=== PATIENT | male | born 1980 | race African-American/Black ===

== ENCOUNTER 2018-08-21 10:07 | Emergency (ER) | payer OTHER ==
[~2018-08-21 10:07] MED LIST: ALLO-119 PO; ARIP10TA4 PO; HYDR-385 PO; HYDR-653 PO; INDO75CA PO; LEV112 PO; MIRT45TA8 PO; MULT-865 PO; NIC10R INH; OXYC-865 PO; PRED-1 PO; PRED20TA6 PO; SIMV-49 PO
--- NOTE | 2018-08-21 10:59 | ER Report ---
History and Physical Time Seen By MD: 10:59 Hx. of Stated Complaint: Pt. here for Gout attack. Left ankle pain and left great toe pain, ankle much worse than the toe. Pt. has been taking Allopurinol and Aleve at home with no relief. HPI/ROS CHIEF COMPLAINT: Gout HISTORY OF PRESENT ILLNESS: 38-year-old male patient presents to emergency room with complaint of gout. Patient states that he's been having pain for the past 4-5 days. Patient states that he has been taking Aleve, allopurinol at home with no relief. He states he also to take 3 days of indomethacin with no improvement. Patient states pain is significant. He denies any injury to the ankle. He states the pain is present with any type of light touch. Patient denies any fevers, chills, nausea, vomiting or diarrhea. Allergies: Coded Allergies: No Known Drug Allergies (Unverified , 08/21/18) Home Meds Active Scripts Hydrocodone Bit/Acetaminophen (HYDROCODON-ACETAMINOPHEN 5-325) 1 Each Tablet, 1 EACH PO Q4-6H PRN for PAIN, #6 TAB Prov:ADEBAYO CANTU 08/21/18 Prednisone (PREDNISONE) 20 Mg Tablet, 40 MG PO DAILY, #10 TAB Prov:ADEBAYO CANTU 08/21/18 Indomethacin (INDOMETHACIN) 75 Mg Capsule.er, 75 MG PO PRN for 7 Days, #10 Prov:JESUSITA ARVIZU MD 05/17/17 Reported Medications Levothyroxine Sodium (LEVOTHYROXINE SODIUM) 0.112 Mg Tab, 0.112 MG PO QDAY, TAB 09/10/17 Mirtazapine (MIRTAZAPINE) 45 Mg Tablet, 45 MG PO QHS 12/22/16 Simvastatin (SIMVASTATIN) 20 Mg Tablet, 10 PO QHS, TAB 01/30/16 Allopurinol (ZYLOPRIM) 300 Mg Tablet, 300 MG PO QDAY, TAB 01/30/16 Aripiprazole (ABILIFY) 10 Mg Tablet, 10 MG PO QDAY, TAB TAKE 1 TABLET BY MOUTH EVERY DAY 09/22/14 Discontinued Scripts Hydrocodone Bit/Acetaminophen (HYDROCODON-ACETAMINOPHEN 5-325) 1 Each Tablet, 1 EACH PO Q4-6H PRN for PAIN, #6 TAB Prov:ADEBAYO CANTU 09/10/17 Prednisone (PREDNISONE) 20 Mg Tablet, 20 MG PO DAILY, #10 TAB Prov:ADEBAYO CANTU [employer] 09/10/17 Past Medical/Surgical History Patient has a past medical history of hyperlipidemia, gout, hypothyroidism, substance abuse, alcohol abuse, depression, anxiety. Patient denies any pertinent surgical history. Hx Smoking: Yes Smoking Status: Current: Every Day Smoker Exposure to Second Hand Smoke?: Yes Hx Substance Use Disorder: Yes Hx Alcohol Use: Yes Constitutional Vital Sign - Last 24 Hours 08/21/18 10:14 Temp 98.5 Pulse 97 Resp 16 B/P (MAP) 121/86 Pulse Ox 95 O2 Delivery Room Air Physical Exam General appearance: Alert no distress. Respiratory: Chest is non tender, lungs are clear to auscultation. Cardiac: Regular rate and rhythm. Gastrointestinal: Patient has bowel sounds are active 4, he does have tenderness in the right lower quadrant palpation. Musculoskeletal: Patient does have erythema and warmth to the ankle, tender to the anterior aspect of the left ankle. Also has some tenderness to the left great toe. DIFFERENTIAL DIAGNOSIS: After history and physical exam differential diagnosis was considered for gout flareup Medical Decision Making ED Course/Re-evaluation ED Course Patient was admitted in exam room, history and physical were obtained. Differential diagnoses were considered. On examination patient does have tenderness to palpation to the left ankle, the left great toe. It is warm to the touch with is likely a gout flare. He has had these in the past and states this feels just like it. He is taking indomethacin with no improvement. We will go ahead and place the patient on prednisone as he has failed the indomethacin treatment. We will also give him a limited supply of pain medication, hydrocodone/Tylenol No. 6. He is to follow-up with his primary care provider in the next week. He is return to emergency room if condition worsens. Patient verbalized understanding and agreement with plan. Decision to Disposition Date: Aug 21, 2018 Decision to Disposition Time: 11:09 Depart Departure Latest Vital Signs Vital Signs Date Time Temp Pulse Resp B/P (MAP) Pulse Ox O2 Delivery O2 Flow Rate FiO2 08/21/18 10:14 98.5 97 16 121/86 95 Room Air Impression: Primary Impression: Gout Condition: Improved Disposition: HOME OR SELF-CARE New Scripts Hydrocodone Bit/Acetaminophen (HYDROCODON-ACETAMINOPHEN 5-325) 1 Each Tablet 1 EACH PO Q4-6H PRN for PAIN, #6 TAB Prov: ADEBAYO CANTU [employer] 08/21/18 Prednisone (PREDNISONE) 20 Mg Tablet 40 MG PO DAILY, #10 TAB Prov: ADEBAYO CANTU [employer] 08/21/18 Patient Instructions: Gout (ED) Additional Instructions: Limit activity by pain. Get plenty of rest. Stop taking the Allopurinol during this flare up. Start taking it again when it is done. Follow up with your primary care provider in the next week. Return to the ER if condition worsens. Problem Qualifiers Primary Impression: Gout Gout site: ankle Gout etiology: unspecified cause Chronicity: acute Laterality: left Qualified Codes: M10.9 - Gout, unspecified ADEBAYO CANTU [employer] Aug 21, 2018 10:59
[2018-08-21] MEDS ORDERED: HYDR-385 PO (11:07)
[2018-08-21] MEDS ORDERED: PRED20TA6 PO (11:07)
[2018-08-21 11:13] VITALS: BP 124/89
== END 2018-08-21 11:25 | disposition home or self-care (01) ==
LOC: ER 11:01
DX: M10.9 Gout, unspecified (principal); F17.210 Nicotine dependence, cigarettes, uncomplicated
CPT/HCPCS: 99282

== ENCOUNTER 2019-01-23 15:20 | Emergency (ER) | payer OTHER ==
[2019-01-23 15:25] VITALS: BP 140/88
--- NOTE | 2019-01-23 15:31 | ER Report ---
History and Physical Time Seen By MD: 15:29 Hx. of Stated Complaint: PAIN IN THE LEFT ANKLE AND KNEE. FEELS LIKE PAIN FROM GOUT THAT HE HAS HAD MULTIPLE TIMES IN THE PAST. HPI/ROS CHIEF COMPLAINT: Left knee and ankle pain HISTORY OF PRESENT ILLNESS: This is a 38-year-old male presents emergency department for pain in his left knee and ankle. Patient states that this past Tuesday he began to have some achiness in his left knee and left ankle. He states that the pain increased, started taking his indomethacin that was prescribed to him for gout. Patient states there is been some improvement today however he still has some pain to the left knee and left ankle. He denies chest pain or shortness of breath. No fevers or chills. No nausea or vomiting. No redness or erythema or cellulitic appearance over the knee or ankle. Patient states this feels very similar to the gout that he's had in the past. REVIEW OF SYSTEMS: Respiratory: No cough, no dyspnea. Cardiovascular: No chest pain, no palpitations. Gastrointestinal: No vomiting, no abdominal pain. Musculoskeletal: As above. Allergies: Coded Allergies: No Known Drug Allergies (Unverified , 08/21/18) Home Meds Active Scripts Prednisone (PREDNISONE) 20 Mg Tablet, 20 MG PO BID for 7 Days, #14 TAB 0 Refills Prov:ERICA MUÑOZ [employer] 01/23/19 Indomethacin (INDOMETHACIN) 75 Mg Capsule.er, 75 MG PO PRN for 7 Days, #10 Prov:JESUSITA ARVIZU MD 05/17/17 Reported Medications Levothyroxine Sodium (LEVOTHYROXINE SODIUM) 0.112 Mg Tab, 0.112 MG PO QDAY, TAB 09/10/17 Mirtazapine (MIRTAZAPINE) 45 Mg Tablet, 45 MG PO QHS 12/22/16 Simvastatin (SIMVASTATIN) 20 Mg Tablet, 10 PO QHS, TAB 01/30/16 Allopurinol (ZYLOPRIM) 300 Mg Tablet, 300 MG PO QDAY, TAB 01/30/16 Aripiprazole (ABILIFY) 10 Mg Tablet, 10 MG PO QDAY, TAB TAKE 1 TABLET BY MOUTH EVERY DAY 09/22/14 Discontinued Scripts Hydrocodone Bit/Acetaminophen (HYDROCODON-ACETAMINOPHEN 5-325) 1 Each Tablet, 1 EACH PO Q4-6H PRN for PAIN, #6 TAB Prov:ADEBAYO CANTU [employer] 08/21/18 Prednisone (PREDNISONE) 20 Mg Tablet, 40 MG PO DAILY, #10 TAB Prov:ADEBAYO CANTU [employer] 08/21/18 Past Medical/Surgical History The patient has a past medical and surgical history of hypercholesterolemia, gout, hypothyroidism, depression, anxiety. Reviewed Nurses Notes: Yes Hx Smoking: Yes Smoking Status: Current: Every Day Smoker Exposure to Second Hand Smoke?: Yes Hx Substance Use Disorder: Yes Hx Alcohol Use: Yes Constitutional Vital Sign - Last 24 Hours 01/23/19 15:25 Temp 98.3 Pulse 112 Resp 16 B/P (MAP) 140/88 Pulse Ox 93 O2 Delivery Room Air Physical Exam General Appearance: The patient is alert, has no immediate need for airway protection and no current signs of toxicity. Eyes: Pupils equal and round no injection. Respiratory: Chest is non tender, lungs are clear to auscultation. Cardiac: regular rate and rhythm, no murmurs, clicks or rubs. Gastrointestinal: Abdomen is soft and non tender, no masses, bowel sounds normal. Musculoskeletal: Neck: Neck is supple and non tender. Extremities mild tenderness and swelling to the left knee and left medial malleolus. No erythema or cellulitic appearance. The joints are not hot. No rashes. Skin: No rashes or lesions. DIFFERENTIAL DIAGNOSIS: After history and physical exam differential diagnosis was considered for septic arthritis, gout, cellulitis, bursitis. Medical Decision Making ED Course/Re-evaluation ED Course The patient was admitted to room. A history and physical were obtained. Differential diagnoses were considered. No concerning findings on physical exam, no erythema or cellulitic appearance to the left knee or ankle, does not appear to be septic arthritis at this time. Patient did decline aspiration of the knee joint. As the patient has been taking indomethacin, I did tell him to stop taking amoxicillin, he's been taking this for 4 days, start him on a course of steroids. I did encourage [facility] to [facility] and schedule [facility]. Patient had no other questions or concerns at this time and discharged home. Decision to Disposition Date: Jan 23, 2019 Decision to Disposition Time: 15:44 Depart Departure Latest Vital Signs Vital Signs Date Time Temp Pulse Resp B/P (MAP) Pulse Ox O2 Delivery O2 Flow Rate FiO2 01/23/19 15:25 98.3 112 16 140/88 93 Room Air Impression: Primary Impression: Gout Condition: Improved Disposition: HOME OR SELF-CARE New Scripts Prednisone (PREDNISONE) 20 Mg Tablet 20 MG PO BID for 7 Days, #14 TAB 0 Refills Prov: ERICA MUÑOZ 01/23/19 Patient Instructions: Gout (ED) Additional Instructions: Stopped taking the indomethacin and start taking the prednisone that I sent to your pharmacy. You can take 500-1000 mg of Tylenol every 8 hours as needed for additional pain relief. Avoid red meat, alcohol and anything else that seems to increase the discomfort. Drink plenty of water. Get plenty of rest. Please schedule a follow[facility] appointment [facility] for [facility]uation within the next 7-10 days. Return to the emergency department for any other concerns or worsening symptoms. Problem Qualifiers Primary Impression: Gout Gout site: knee Gout etiology: unspecified cause Chronicity: unspecified Laterality: left Qualified Codes: M10.9 - Gout, unspecified ERICA MUÑOZ Jan 23, 2019 15:31
[2019-01-23] MEDS ORDERED: PRED20TA6 PO (15:46)
== END 2019-01-23 16:08 | disposition home or self-care (01) ==
LOC: ER 15:51
DX: M10.9 Gout, unspecified (principal)
CPT/HCPCS: 99281

== ENCOUNTER 2019-02-18 17:38 | Emergency (ER) | payer OTHER ==
--- NOTE | 2019-02-18 18:00 | ER Report ---
History and Physical Time Seen By MD: 17:51 Hx. of Stated Complaint: PATIENT REPORTS SWELLING TO BOTH ANKLES AND BOTH KNEES FOR 4 DAYS. HAS HISTORY OF GOUT BUT REPORTS IT DOES NOT FEEL LIKE GOUT HPI/ROS CHIEF COMPLAINT: Ankle pain and swelling HISTORY OF PRESENT ILLNESS: This is a 38-year-old male who presents to the emergency department via EMS for ankle pain and swelling. The patient was seen and evaluated in the emergency department in January for gout, was given prednisone, he was [facility] prior to [facility] visit, he was taking allopurinol and indomethacin, with little to no relief. Patient states he did have moderate amount of relief with the prednisone, after the prednisone had run out, the [facility] and allopurinol. Patient states his pain has been waxing and waning, with intermittent swelling and achiness of his ankles bilaterally in his right knee. He ran out of his medication 2 days ago, last night began to have increased pain in the left ankle and right knee, so myself today that he called EMS, they transported him to the ER for further evaluation. He denies chest pain or shortness of breath. No fevers or chills. He is requesting help with his gout. He states he is unable to ambulate without assistance. There is warmth over the left ankle, right ankle and right knee, no cellulitis or erythema. REVIEW OF SYSTEMS: Constitutional: As above. Eyes: No discharge. ENT: No sore throat. Cardiovascular: No chest pain, no palpitations. Respiratory: No cough, no shortness of breath. Gastrointestinal: No abdominal pain, no vomiting. Genitourinary: No hematuria. Musculoskeletal: As above. Skin: No rashes. Neurological: No headache. Allergies: Coded Allergies: No Known Drug Allergies (Unverified , 08/21/18) Home Meds Active Scripts Prednisone (PREDNISONE) 20 Mg Tablet, 20 MG PO BID for 2 Days, #4 TAB Prov:ERICA MUÑOZ-BC 02/18/19 Hydrocodone Bit/Acetaminophen (NORCO 5-325 TABLET) 1 Each Tablet, 1 EACH PO Q4- 6H PRN for PAIN, #5 TAB 0 Refills Prov:ERICA MUÑOZ-BC 02/18/19 Prednisone (PREDNISONE) 20 Mg Tablet, 40 MG PO QDAY, #17 TAB 40mg once a day for 4 days. 30mg once a day for 3 days. 20mg once a day for 3 days. 10mg once a day for 2 days. Prov:ERICA MUÑOZ [facility]- 02/18/19 Prednisone (PREDNISONE) 20 Mg Tablet, 20 MG PO BID for 7 Days, #14 TAB 0 Refills Prov:ERICA MUÑOZ [facility]- 01/23/19 Indomethacin (INDOMETHACIN) 75 Mg Capsule.er, 75 MG PO PRN for 7 Days, #10 Prov:JESUSITA ARVIZU MD 05/17/17 Reported Medications Levothyroxine Sodium (LEVOTHYROXINE SODIUM) 0.112 Mg Tab, 0.112 MG PO QDAY, TAB 09/10/17 Mirtazapine (MIRTAZAPINE) 45 Mg Tablet, 45 MG PO QHS 12/22/16 Simvastatin (SIMVASTATIN) 20 Mg Tablet, 10 PO QHS, TAB 01/30/16 Allopurinol (ZYLOPRIM) 300 Mg Tablet, 300 MG PO QDAY, TAB 01/30/16 Aripiprazole (ABILIFY) 10 Mg Tablet, 10 MG PO QDAY, TAB TAKE 1 TABLET BY MOUTH EVERY DAY 09/22/14 Past Medical/Surgical History The patient has a past medical and surgical history of hypercholesterolemia, gout, hypothyroidism, depression, anxiety. Reviewed Nurses Notes: Yes Hx Smoking: Yes Smoking Status: Current: Every Day Smoker Exposure to Second Hand Smoke?: Yes Hx Substance Use Disorder: Yes Hx Alcohol Use: Yes Constitutional Vital Sign - Last 24 Hours 02/18/19 02/18/19 02/18/19 02/18/19 17:42 17:43 18:00 18:08 Temp 98.4 Pulse 127 125 Resp 16 B/P (MAP) 142/85 (104) 142/85 150/101 (117) Pulse Ox 90 93 O2 Delivery Room Air 02/18/19 02/18/19 02/18/19 02/18/19 18:38 19:00 19:08 19:30 Pulse 114 115 111 B/P (MAP) 144/103 (117) 146/103 (117) Pulse Ox 92 95 94 02/18/19 02/18/19 02/18/19 02/18/19 19:30 20:00 20:30 20:35 Pulse ??? 112 112 B/P (MAP) 146/103 (117) 135/92 (106) Pulse Ox 91 90 89 02/18/19 21:00 B/P (MAP) 132/93 (106) Physical Exam General Appearance: The patient is alert, has no immediate need for airway protection and no signs of toxicity. Eyes: Pupils equal and round no pallor or injection. ENT, Mouth: Mucous membranes are moist. Respiratory: There are no retractions, lungs are clear to auscultation. Cardiovascular: Regular rate and rhythm. Gastrointestinal: Abdomen is soft and non tender, no masses, bowel sounds normal. Skin/Extremities: Warm to touch over the left foot and ankle, right foot ankle, right knee, no apparent cellulitis or erythema. There is swelling noted to the left ankle and foot. Decreased range of motion secondary to pain bilateral feet, decreased range of motion to right knee secondary to pain. Musculoskeletal: Neck is supple non tender. are nontender, nonswollen and have full range of motion. DIFFERENTIAL DIAGNOSIS: After history and physical exam differential diagnosis was considered for septic arthritis, osteoarthritis, gouty arthritis, cellulitis. Medical Decision Making Data Points Result Diagram: 02/18/19 1831 02/18/19 1831 Laboratory Hematology Test 02/18/19 18:31 Red Blood Count 5.12 M/uL (4.00-5.60) Mean Corpuscular Volume 85.3 fL (80.0-96.0) Mean Corpuscular Hemoglobin 28.9 pg (26.0-33.0) Mean Corpuscular Hemoglobin Concent 33.9 g/dL (32.0-36.0) Red Cell Distribution Width 14.0 % (11.5-14.5) Mean Platelet Volume 8.1 fL (7.2-11.1) Neutrophils (%) (Auto) 76.6 % (39.4-72.5) Lymphocytes (%) (Auto) 13.7 % (17.6-49.6) Monocytes (%) (Auto) 8.5 % (4.1-12.4) Eosinophils (%) (Auto) 0.6 % (0.4-6.7) Basophils (%) (Auto) 0.6 % (0.3-1.4) Nucleated RBC Relative Count (auto) 0.1 /100WBC Neutrophils # (Auto) 9.6 K/uL (2.0-7.4) Lymphocytes # (Auto) 1.7 K/uL (1.3-3.6) Monocytes # (Auto) 1.1 K/uL (0.3-1.0) Eosinophils # (Auto) 0.1 K/uL (0.0-0.5) Basophils # (Auto) 0.1 K/uL (0.0-0.1) Nucleated RBC Absolute Count (auto) 0.01 K/uL Sodium Level 139 mmol/L (137-145) Potassium Level 4.0 mmol/L (3.5-5.0) Chloride Level 100 mmol/L (98-107) Carbon Dioxide Level 29 mmol/L (22-30) Blood Urea Nitrogen 8 mg/dl (9-21) Creatinine 1.20 mg/dl (0.66-1.25) Glomerular Filtration Rate Calc > 60.0 Random Glucose 101 mg/dl (75-110) Calcium Level 10.0 mg/dl (8.4-10.2) Magnesium Level 2.0 mg/dl (1.7-2.2) Iron Level 31 ug/dl (49-181) Total Bilirubin 0.9 mg/dl (0.2-1.3) Aspartate Amino Transf (AST/SGOT) 29 U/L (0-35) Alanine Aminotransferase (ALT/SGPT) 31 U/L (0-56) Alkaline Phosphatase 114 U/L (0-126) Total Protein 7.6 g/dl (6.3-8.2) Albumin 4.1 g/dl (3.5-5.0) Chemistry Test 02/18/19 18:31 White Blood Count 12.6 k/uL (4.5-11.0) Red Blood Count 5.12 M/uL (4.00-5.60) Hemoglobin 14.8 g/dL (14.0-18.0) Hematocrit 43.6 % (42.0-52.0) Mean Corpuscular Volume 85.3 fL (80.0-96.0) Mean Corpuscular Hemoglobin 28.9 pg (26.0-33.0) Mean Corpuscular Hemoglobin Concent 33.9 g/dL (32.0-36.0) Red Cell Distribution Width 14.0 % (11.5-14.5) Platelet Count 371 K/uL (150-450) Mean Platelet Volume 8.1 fL (7.2-11.1) Neutrophils (%) (Auto) 76.6 % (39.4-72.5) Lymphocytes (%) (Auto) 13.7 % (17.6-49.6) Monocytes (%) (Auto) 8.5 % (4.1-12.4) Eosinophils (%) (Auto) 0.6 % (0.4-6.7) Basophils (%) (Auto) 0.6 % (0.3-1.4) Nucleated RBC Relative Count (auto) 0.1 /100WBC Neutrophils # (Auto) 9.6 K/uL (2.0-7.4) Lymphocytes # (Auto) 1.7 K/uL (1.3-3.6) Monocytes # (Auto) 1.1 K/uL (0.3-1.0) Eosinophils # (Auto) 0.1 K/uL (0.0-0.5) Basophils # (Auto) 0.1 K/uL (0.0-0.1) Nucleated RBC Absolute Count (auto) 0.01 K/uL Glomerular Filtration Rate Calc > 60.0 Calcium Level 10.0 mg/dl (8.4-10.2) Magnesium Level 2.0 mg/dl (1.7-2.2) Iron Level 31 ug/dl (49-181) Total Bilirubin 0.9 mg/dl (0.2-1.3) Aspartate Amino Transf (AST/SGOT) 29 U/L (0-35) Alanine Aminotransferase (ALT/SGPT) 31 U/L (0-56) Alkaline Phosphatase 114 U/L (0-126) Total Protein 7.6 g/dl (6.3-8.2) Albumin 4.1 g/dl (3.5-5.0) ED Course/Re-evaluation ED Course The patient was admitted to room. A history and physical were obtained. Differential diagnoses were considered. An IV was started. A CBC, CMP, magnesium were obtained. The procedure showing mild elevation white count of 12.6, mild shift, likely secondary to pain. Elbow liter normal saline bolus was given. 125 mg IV Solu-Medrol, followed by 4 mg IV morphine 2. Patient states having moderate amount of improvement in pain. States that the right knee is significantly improved, has increased range of motion. Is also given 20 mg by mouth prednisone while in the emergency department. He was given a prednisone burst for 2 days followed by a 10 day taper. Instructed to [facility] and, they can reevaluate the medications that he is been taking these do not seem as though they are working for the patient. Patient was agreeable with this plan of care and discharged home. Decision to Disposition Date: February 18, 2019 Decision to Disposition Time: 20:39 Depart Departure Latest Vital Signs Vital Signs Date Time Temp Pulse Resp B/P (MAP) Pulse Ox O2 Delivery O2 Flow Rate FiO2 02/18/19 21:00 132/93 (106) 02/18/19 20:35 112 89 02/18/19 17:43 98.4 16 Room Air Impression: Primary Impression: Gout flare Condition: Improved Disposition: HOME OR SELF-CARE New Scripts Prednisone (PREDNISONE) 20 Mg Tablet 20 MG PO BID for 2 Days, #4 TAB Prov: ERICA MUÑOZ [facility] 02/18/19 Hydrocodone Bit/Acetaminophen (NORCO 5-325 TABLET) 1 Each Tablet 1 EACH PO Q4-6H PRN for PAIN, #5 TAB 0 Refills Prov: ERICA MUÑOZ [facility] 02/18/19 Prednisone (PREDNISONE) 20 Mg Tablet 40 MG PO QDAY, #17 TAB 40mg once a day for 4 days. 30mg once a day for 3 days. 20mg once a day for 3 days. 10mg once a day for 2 days. Prov: ERICA MUÑOZ [facility] 02/18/19 Patient Instructions: Gout (ED) Additional Instructions: You will have a 2 day prednisone burst, followed by a 10 day taper. Before you are done with the taper, please follow [facility] with [facility] and discuss a different approach to your gout, including adjusting or transitioning off and on your indomethacin and allopurinol. You can also start drinking one 8 oz glass of Varner juice a day, this may help. Avoid alcohol. Cut back on Red meat and large quantities of protein. Drink plenty of water. Get plenty of rest. Return to the ED for any other concerns or worsening symptoms. Problem Qualifiers Primary Impression: Gout flare Gout site: multiple sites Gout etiology: unspecified cause Qualified Codes: M10.9 - Gout, unspecified ERICA MUÑOZ [facility]- February 18, 2019 18:00
[2019-02-18] MEDS ORDERED: MORPHINE 4 MG/ML SDV IVP ONE ×2 (18:10→20:00)
[2019-02-18] MEDS ORDERED: NS(*) 0.9% 1000 ML BAG 1,000 ML IV ONE (18:10)
[2019-02-18] MEDS ORDERED: methylPREDNIS SUCC 125 MG/2ML IVP ONE (18:10)
[2019-02-18 18:45] LABS: PLATELET COUNT, AUTOMATED 371 K/uL (150-450)
[2019-02-18] MEDS ORDERED: predniSONE 20 MG TAB PO ONE (20:00)
[2019-02-18] MEDS ORDERED: PRED20TA6 PO ×2 (20:11→20:13)
[2019-02-18] MEDS ORDERED: HYDR-653 PO (20:11)
[2019-02-18 21:00] VITALS: BP 132/93
== END 2019-02-18 21:25 | disposition home or self-care (01) ==
LOC: ER 17:53
DX: M10.9 Gout, unspecified (principal)
CPT/HCPCS: 83540; 83735; 84443; 85025; 96361; 96374; 96375; 96376; 99284; J2270; J2930; J7030; J7512; 82040; 82247; 82310; 82374; 82435; 82565; 82947; 84075; 84132; 84155; 84295; 84450; 84460; 84520

== ENCOUNTER → 2019-02-18 | Outpatient (CLI) | payer OTHER | LOC: AMB 17:19 | PROVIDERS: ATTEND Nurse Practitioner | DX: M25.562 Pain in left knee (principal); M25.561 Pain in right knee; M25.572 Pain in left ankle and joints of left foot; M25.571 Pain in right ankle and joints of right foot; R53.1 Weakness; R60.9 Edema, unspecified | CPT/HCPCS: A0425; A0429 ==

== ENCOUNTER 2019-04-19 17:10 | Emergency (ER) | payer OTHER ==
--- NOTE | 2019-04-19 17:20 | ER Report ---
History and Physical Time Seen By MD: 17:17 HPI/ROS CHIEF COMPLAINT: Right arm pain HISTORY OF PRESENT ILLNESS: 39-year-old male patient presents to emergency room with complaint of right arm pain. Patient states having right arm pain for the p ast several days. He states that he has difficult time with flexion of the right arm. He also has difficulty with extension of the right wrist and fingers. Patient states he has a history of gout is concerned they may be having a gout flare up. Patient denies any injury to the arm. He denies any fevers, chills, nausea, vomiting or diarrhea. Patient states he is not taking any medication for this. He states he is taking his allopurinol as directed. REVIEW OF SYSTEMS: Respiratory: No cough, no dyspnea. Cardiovascular: No chest pain, no palpitations. Gastrointestinal: No vomiting, no abdominal pain. Musculoskeletal: As noted above Allergies: Coded Allergies: No Known Drug Allergies (Unverified , 04/19/19) Home Meds Active Scripts Prednisone (PREDNISONE) 20 Mg Tablet, 40 MG PO DAILY, #10 TAB Prov:ADEBAYO CANTU 04/19/19 Tramadol Hcl (TRAMADOL HCL) 50 Mg Tablet, 50 MG PO Q4-6H PRN for PAIN, #8 TAB Prov:ADEBAYO CANTU 04/19/19 Indomethacin (INDOMETHACIN) 75 Mg Capsule.er, 75 MG PO PRN for 7 Days, #10 Prov:JESUSITA ARVIZU MD 05/17/17 Reported Medications Escitalopram Oxalate (LEXAPRO) 5 Mg Tablet, 5 MG PO QDAY 04/19/19 Mirtazapine (MIRTAZAPINE) 45 Mg Tablet, 45 MG PO QHS 12/22/16 Simvastatin (SIMVASTATIN) 20 Mg Tablet, 10 PO QHS, TAB 01/30/16 Allopurinol (ZYLOPRIM) 300 Mg Tablet, 300 MG PO QDAY, TAB 01/30/16 Aripiprazole (ABILIFY) 10 Mg Tablet, 10 MG PO QDAY, TAB TAKE 1 TABLET BY MOUTH EVERY DAY 09/22/14 Discontinued Reported Medications Levothyroxine Sodium (LEVOTHYROXINE SODIUM) 0.112 Mg Tab, 0.112 MG PO QDAY, TAB 09/10/17 Discontinued Scripts Prednisone (PREDNISONE) 20 Mg Tablet, 20 MG PO BID for 2 Days, #4 TAB Prov:ERICA MUÑOZ [facility] 02/18/19 Hydrocodone Bit/Acetaminophen (NORCO 5-325 TABLET) 1 Each Tablet, 1 EACH PO Q4- 6H PRN for PAIN, #5 TAB 0 Refills Prov:ERICA MUÑOZ [facility] 02/18/19 Prednisone (PREDNISONE) 20 Mg Tablet, 40 MG PO QDAY, #17 TAB 40mg once a day for 4 days. 30mg once a day for 3 days. 20mg once a day for 3 days. 10mg once a day for 2 days. Prov:ERICA MUÑOZ [facility] 02/18/19 Prednisone (PREDNISONE) 20 Mg Tablet, 20 MG PO BID for 7 Days, #14 TAB 0 Refills Prov:ERICA MUÑOZ [facility] 01/23/19 Past Medical/Surgical History Patient has a past medical history of hyperlipidemia, gout, hypothyroidism, substance abuse, alcohol abuse, depression, anxiety. Patient denies any pertinent surgical history. Reviewed Nurses Notes: Yes Hx Smoking: Yes Smoking Status: Current: Every Day Smoker Exposure to Second Hand Smoke?: Yes Hx Substance Use Disorder: Yes Hx Alcohol Use: Yes Constitutional Vital Sign - Last 24 Hours 04/19/19 18:04 Temp 97.9 Pulse 104 Resp 16 B/P (MAP) 141/107 Pulse Ox 92 O2 Delivery Room Air Physical Exam General Appearance: The patient is alert, has no immediate need for airway protection and no current signs of toxicity. Respiratory: Chest is non tender, lungs are clear to auscultation. Cardiac: regular rate and rhythm Gastrointestinal: Abdomen is soft and non tender, no masses, bowel sounds normal. Musculoskeletal: Neck: Neck is supple and non tender. Extremities have full range of motion and are non tender. Patient has pain to the elbow, wrist, fingers. Patient has worsening pain with flexion but less so with extension of the elbow. Patient has worsening pain with extension of the hand and wrist. Skin: No rashes or lesions. DIFFERENTIAL DIAGNOSIS: After history and physical exam differential diagnosis was considered for gout flareup, pain, tendinitis, fracture. Medical Decision Making Data Points Result Diagram: 04/19/19180204/19/191802 Laboratory Hematology Test 04/19/19 18:03 White Blood Count 8.1 k/uL (4.5-11.0) Red Blood Count 4.05 M/uL (4.00-5.60) Hemoglobin 11.3 g/dL (14.0-18.0) L Hematocrit 32.6 % (42.0-52.0) L Mean Corpuscular Volume 80.6 fL (80.0-96.0) Mean Corpuscular Hemoglobin 27.8 pg (26.0-33.0) Mean Corpuscular Hemoglobin Concent 34.5 g/dL (32.0-36.0) Red Cell Distribution Width 14.7 % (11.5-14.5) H Platelet Count 483 K/uL (150-450) H Mean Platelet Volume 7.9 fL (7.2-11.1) Neutrophils (%) (Auto) 77.0 % (39.4-72.5) H Lymphocytes (%) (Auto) 16.8 % (17.6-49.6) L Monocytes (%) (Auto) 4.5 % (4.1-12.4) Eosinophils (%) (Auto) 0.8 % (0.4-6.7) Basophils (%) (Auto) 0.9 % (0.3-1.4) Nucleated RBC Relative Count (auto) 0.0 /100WBC Neutrophils # (Auto) 6.2 K/uL (2.0-7.4) Lymphocytes # (Auto) 1.4 K/uL (1.3-3.6) Monocytes # (Auto) 0.4 K/uL (0.3-1.0) Eosinophils # (Auto) 0.1 K/uL (0.0-0.5) Basophils # (Auto) 0.1 K/uL (0.0-0.1) Nucleated RBC Absolute Count (auto) 0.00 K/uL Erythrocyte Sedimentation Rate 93 mm/HOUR (0-15) H Chemistry Test 04/19/19 18:03 Sodium Level 141 mmol/L (137-145) Potassium Level 3.2 mmol/L (3.5-5.0) Chloride Level 104 mmol/L (98-107) Carbon Dioxide Level 27 mmol/L (22-30) Blood Urea Nitrogen 8 mg/dl (9-21) Creatinine 1.20 mg/dl (0.66-1.25) Glomerular Filtration Rate Calc > 60.0 Random Glucose 123 mg/dl (75-110) Calcium Level 9.0 mg/dl (8.4-10.2) Total Bilirubin 0.4 mg/dl (0.2-1.3) Aspartate Amino Transf (AST/SGOT) 21 U/L (0-35) Alanine Aminotransferase (ALT/SGPT) 38 U/L (0-56) Alkaline Phosphatase 103 U/L (0-126) C-Reactive Protein 3.7 mg/dl (<1.0) Total Protein 7.6 g/dl (6.3-8.2) Albumin 3.7 g/dl (3.5-5.0) EKG/Imaging Imaging 3 views right elbow Indication: pain and difficulty moving Comparison: None Available Findings: No evidence of fracture, dislocation, or acute osseous abnormality right elbow. No evidence of elbow joint effusion. Mild soft tissue thickening/edema overlying the olecranon. No evidence of radiopaque foreign body. IMPRESSION: 1. No acute osseous abnormality of the right elbow. 2. Mild soft tissue thickening/edema overlying the olecranon. Report Dictated By: Evelio Oliver MD at 04/19/2019 7:00 PM Report E-Signed By: Evelio Oliver MD at 04/19/2019 7:01 PM 3 views right hand Indication: pain and difficulty moving Comparison: None Available. Findings: No evidence of fracture, dislocation, or acute osseous abnormality of the right hand. There is no focal soft tissue abnormality. No evidence of radiopaque foreign body. Impression: 1.No acute osseous abnormality of the right hand Report Dictated By: Evelio Oliver MD at 04/19/2019 6:59 PM Report E-Signed By: Evelio Oliver MD at 04/19/2019 7:00 PM XR WRIST 3 OR MORE VIEWS RT Indication: pain and difficulty moving Comparison: None Available Findings: No evidence of fracture, dislocation, or acute osseous abnormality right wrist. No evidence of radiopaque foreign body. There is no focal soft tissue abnormality. IMPRESSION: 1.No acute osseous abnormality right wrist Report Dictated By: Evelio Oliver MD at 04/19/2019 6:57 PM Report E-Signed By: Evelio Oliver MD at 04/19/2019 6:59 PM ED Course/Re-evaluation ED Course Patient was admitted to an exam room, history and physical were obtained. Differential diagnoses were considered. On examination lungs are clear, heart is regular, abdomen soft nontender. Patient did have tenderness to the right elbow, right wrist and fingers. Pain seemed to be worse with extension of the wrist or fingers. He had significant pain with flexion of the elbow. X-rays are done of the right elbow, right wrist and right hand. Those were negative. A CBC, CMP, ESR, CRP were done. Lab work was unremarkable except patient did have an elevated CRP of 3.9 and ESR of 93. I believe that the patient is likely having a flareup of his gout. We will go ahead and treat him with 40 mg of oral prednisone here in the emergency room and then a prescription was sent in for 40 mg prednisone daily for 5 days and tramadol for the next 2 days. Patient is to follow-up with his primary care provider next week. He is return to emergency room if condition worsens. Patient verbalized understanding and agreement with plan. Decision to Disposition Date: Apr 19, 2019 Decision to Disposition Time: 19:24 Depart Departure Latest Vital Signs Vital Signs Date Time Temp Pulse Resp B/P (MAP) Pulse Ox O2 Delivery O2 Flow Rate FiO2 04/19/19 18:04 97.9 104 16 141/107 92 Room Air Impression: Primary Impression: Gout flare Condition: Improved Disposition: HOME OR SELF-CARE New Scripts Prednisone (PREDNISONE) 20 Mg Tablet 40 MG PO DAILY, #10 TAB Prov: ADEBAYO CANTU 04/19/19 Tramadol Hcl (TRAMADOL HCL) 50 Mg Tablet 50 MG PO Q4-6H PRN for PAIN, #8 TAB Prov: ADEBAYO CANTU 04/19/19 Patient Instructions: Gout (ED) Additional Instructions: Follow up with your primary care provider in the next week. Return to the ER if condition worsens. Take medication as prescribed. Increase fluid intake. Avoid foods that are high in purines. Limit activity by pain. Problem Qualifiers Primary Impression: Gout flare Gout site: multiple sites Gout etiology: unspecified cause Qualified Code s: M10.9 - Gout, unspecified ADEBAYO CANTU Apr 19, 2019 17:20
[2019-04-19] MEDS ORDERED: ESCI5TAB10 PO (18:11)
[2019-04-19 18:25] LABS: PLATELET COUNT, AUTOMATED 483 K/uL (150-450)
[2019-04-19 19:00] VITALS: BP 141/95
--- NOTE | 2019-04-19 19:05 | RADIOLOGY IMAGING REPORT ---
FACILITY: [facility] PATIENT NAME: Chato Sexton : 1980 MR: [id number] V: [id number] EXAM DATE: ORDERING PHYSICIAN: ADEBAYO CANTU TECHNOLOGIST: [place] [facility] [place] Patient: Chato Sexton : 1980 Visit/Account:[id number] Date of Sevice: 04/19/2019 XR WRIST 3 OR MORE VIEWS RT Indication: pain and difficulty moving Comparison: None Available Findings: No evidence of fracture, dislocation, or acute osseous abnormality right wrist. No evidence of radiopaque foreign body. There is no focal soft tissue abnormality. IMPRESSION: 1.No acute osseous abnormality right wrist Report Dictated By: Evelio Oliver MD at 04/19/2019 6:57 PM Report E-Signed By: Evelio Oliver MD at 04/19/2019 6:59 PM WSN:[email or web address]
--- NOTE | 2019-04-19 19:06 | RADIOLOGY IMAGING REPORT ---
FACILITY: [facility] PATIENT NAME: Chato Sexton : 1980 MR: [id number] V: [id number] EXAM DATE: ORDERING PHYSICIAN: ADEBAYO CANTU TECHNOLOGIST: Location: [facility] - [place] Patient: Chato Sexton : 1980 Visit/Account:[id number] Date of Sevice: 04/19/2019 3 views right hand Indication: pain and difficulty moving Comparison: None Available. Findings: No evidence of fracture, dislocation, or acute osseous abnormality of the right hand. There is no focal soft tissue abnormality. No evidence of radiopaque foreign body. Impression: 1.No acute osseous abnormality of the right hand Report Dictated By: Evelio Oliver MD at 04/19/2019 6:59 PM Report E-Signed By: Evelio Oliver MD at 04/19/2019 7:00 PM WSN:[email or web address]
--- NOTE | 2019-04-19 19:07 | RADIOLOGY IMAGING REPORT ---
FACILITY: [facility] - [place] PATIENT NAME: Chato Sexton : 1980 MR: [id number] V: [id number] EXAM DATE: ORDERING PHYSICIAN: ADEBAYO CANTU TECHNOLOGIST: Location: [facility] - [place] Patient: Chato Sexton : 1980 Visit/Account:[id number] Date of Sevice: 04/19/2019 3 views right elbow Indication: pain and difficulty moving Comparison: None Available Findings: No evidence of fracture, dislocation, or acute osseous abnormality right elbow. No evidence of elbow joint effusion. Mild soft tissue thickening/edema overlying the olecranon. No evidence of radiopaque foreign body. IMPRESSION: 1. No acute osseous abnormality of the right elbow. 2. Mild soft tissue thickening/edema overlying the olecranon. Report Dictated By: Evelio Oliver MD at 04/19/2019 7:00 PM Report E-Signed By: Evelio Oliver MD at 04/19/2019 7:01 PM WSN:[email or web address]
[2019-04-19] MEDS ORDERED: PRED20TA6 PO (19:25)
[2019-04-19] MEDS ORDERED: TRAM-420 PO (19:25)
[2019-04-19] MEDS ORDERED: methylPREDNIS SUCC 125 MG/2ML IVP ONE (19:30)
[2019-04-19] MEDS ORDERED: predniSONE 20 MG TAB PO ONE (19:35)
== END 2019-04-19 19:48 | disposition home or self-care (01) ==
LOC: ER 17:45
DX: M10.9 Gout, unspecified (principal)
CPT/HCPCS: 73080; 73110; 73130; 85025; 85651; 86140; 99284; J7512; 82040; 82247; 82310; 82374; 82435; 82565; 82947; 84075; 84132; 84155; 84295; 84450; 84460; 84520